=== PATIENT | female | born 1980 | race Caucasian/White ===

== ENCOUNTER 2021-09-11 15:10 | Outpatient (CLI) | payer BC ==
[~2021-09-11] VITALS: Ht 157.5 cm; Wt 62.6 kg
[2021-09-11] MEDS ORDERED: PROZAC 20MG20 MG PO (15:27)
[2021-09-11] MEDS ORDERED: RT ADVAIR 128 DISKUS IH (15:27)
[2021-09-11] MEDS ORDERED: FERRO-TIME325 MG PO (15:28)
[2021-09-11] MEDS ORDERED: PRENATAL TABLET PO (15:28)
[2021-09-11 15:30] VITALS: BP 137/76; PULSE 109
[2021-09-11 16:00] VITALS: TEMP 97.9
[2021-09-11 16:30] VITALS: BP 119/72; PULSE 89
[2021-09-11 16:30] LABS: MUCOUS Present (NOT PRESENT); PH 7 (5-8); SQUAMOUS EPITHELIAL 0-2 /hpf (0-10); URINE APPEARANCE Clear (CLEAR/HAZY); URINE BACTERIA None Seen /hpf (NONE SEEN); URINE BILIRUBIN Negative (NEGATIVE); URINE BLOOD 2+ (NEGATIVE); URINE COLOR Yellow (YELLOW); URINE GLUCOSE Negative (NEGATIVE); URINE KETONE Trace (NEGATIVE); URINE LEUKOCYTE ESTERASE Negative (NEGATIVE); URINE NITRATE Negative (NEGATIVE); URINE PROTEIN(semi-quant) Negative (NEGATIVE); URINE RBC None Seen /hpf (0-2); URINE UROBILINOGEN Negative (NEGATIVE)
--- NOTE | 2021-09-11 16:32 | NUR ---
T 1630: PT. IN RR
[2021-09-11 16:36] LABS: COLLECTION METHOD CLEAN CATCH
[2021-09-11 16:46] VITALS: BP 121/88; PULSE 95
--- NOTE | 2021-09-11 17:10 | NUR ---
1520: PT. AMBULATORY TO UNIT W/ C/O VAGINAL BLEEDING. AROUND 1500 PT. STATED SHE NOTICED SOME CRAMPING IN LEFT SIDE AND THEN WHEN SHE WENT TO BATHROOM SHE NOTICED SOME BROWN BLOOD ON UNDERWEAR. SHE WIPED SHE STATED IT STARTED TO TURN BRIGHT RED. PT ESCORTED TO LR3 AND ORIENTED TO ROOM. CLEAN GOWN ON, EFM/TOCO APPLIED, VS OBTAINED, AND ASSESSMENTS COMPLETED. POC DISCUSSED W/ PT. WILL CONTINUE TO MONITOR *SEE PHYSICIAN NOTIFICIATION FOR FURTHER DISSCUSSION W/ PROVIDER*
--- NOTE | 2021-09-11 17:21 | NUR ---
1704: DISCHARGED PER DR. RIZZO. (SEE PHYSICIAN NOTIFICATION) WENT OVER DISCHARGE PAPERWORK WITH PT. PT. HAS NO QUESTIONS/CONCERNS AT THIS TIME. ESCORTED PT. TO FRONT OF UNIT AND INFORMED HER TO CALL WITH ANY QUESTIONS/CONCERNS. PT. VERBALIZES UNDERSTANDING OF DISCHARGE INSTRUCTIONS. PT. IN STABLE CONDITION UPON DISCHARGE
== END 2021-09-11 17:04 | disposition home or self-care (01) ==
LOC: LDRO 15:10 → LDR 15:20 → LDRO 17:04
PROVIDERS: Obstetrics & Gynecology
DX: O26.853 Spotting complicating pregnancy, third trimester (principal); Z3A.32 32 weeks gestation of pregnancy
CPT/HCPCS: OP